=== PATIENT | male | born 1945 | race Caucasian/White ===

== ENCOUNTER 2019-10-15 22:45 | Inpatient (IN) | payer MEDICARE, BC ==
[~2019-10-15] VITALS: Ht 188 cm; Wt 103.5 kg
--- NOTE | 2019-10-15 23:12 | NUR ---
assessment made. seen by SABRA. monse to monitor. patient alert and oriented. denies CP / SOB at this time. AMARI Blair at bedside for pacemaker interrogation.
[2019-10-15] MEDS ORDERED: OMEP-110 PO (23:15)
[2019-10-15] MEDS ORDERED: ACET650S21 PO (23:15)
--- NOTE | 2019-10-15 23:16 | NUR ---
Dr. Palafox on phone with dynamometer repairer.
--- NOTE | 2019-10-15 23:24 | NUR ---
PACEMAKER INTERROGATION IN PROGRESS
--- NOTE | 2019-10-16 | NUR ---
ERP at bedside talking to patient for plan of care.
--- NOTE | 2019-10-16 00:36 | NUR ---
[employer] tech at bedside. patient had a ~ 8 secs pause.
--- NOTE | 2019-10-16 02:16 | NUR ---
patient awaiting admission orders from hospitalist.
[2019-10-16] MEDS ORDERED: ACETAMINOPHEN 325 MG TABLET PO PRN ×2 (03:00→15:30)
[2019-10-16] MEDS ORDERED: DOCUSATE 100 MG CAPSULE PO PRN (03:00)
[2019-10-16] MEDS ORDERED: ONDANSETRON 2MG/ML, 2ML IVPush PRN (03:00)
[2019-10-16] MEDS ORDERED: POLYETHYLENE GLYCOL 17 GM PACKET PO PRN (03:00)
[2019-10-16] MEDS ORDERED: OXYcodone IR 5MG TABLET PO PRN (03:00)
[2019-10-16] MEDS ORDERED: morphine SULFATE 10 MG/ML, 1ML IVPush PRN (03:00)
[2019-10-16] MEDS ORDERED: BISACODYL 10 MG SUPP PR PRN (03:00)
[2019-10-16] MEDS ORDERED: PROMETHAZINE 25 MG/ML, 1ML IM PRN (03:00)
[2019-10-16] MEDS ORDERED: hydrALAzine 20 MG/ML, 1ML IVPush PRN (03:00)
[2019-10-16] MEDS ORDERED: ONDANSETRON ODT 4 MG PO PRN (03:00)
[2019-10-16 03:06] LABS: BASOPHILS # (AUTO) 0.03 x10^3/uL (0-0.1); BASOPHILS % (AUTO) 0 % (0-1); EOSINOPHILS # (AUTO) 0.37 x10^3/uL (0-0.4); EOSINOPHILS % (AUTO) 5 % (1-7); LYMPHOCYTES # (AUTO) 1.86 x10^3/uL (1-3.4); LYMPHOCYTES % (AUTO) 24 % (22-44); MD NO; MEAN CORPUSCULAR HEMOGLOBIN 32.1 pg (27.5-34.5); MEAN CORPUSCULAR HGB CONC 32.8 g/dL (33.2-36.2); MEAN CORPUSCULAR VOLUME 97.8 fL (81-97); MEAN PLATELET VOLUME 7.4 fL (7.4-10.4); MONOCYTES # (AUTO) 0.59 x10^3/uL (0.2-0.8); MONOCYTES % (AUTO) 8 % (2-9); NEUTROPHILS # (AUTO) 5.08 x10^3/uL (1.8-6.8); NEUTROPHILS % (AUTO) 64 % (42-75); PLATELET COUNT 240 x10^3/uL (130-400); RED BLOOD COUNT 4.76 x10^6/uL (4.38-5.82); RED CELL DISTRIBUTION WIDTH 13.8 % (9.4-14.8)
[2019-10-16] MEDS ORDERED: LIDOCAINE 1%, 20ML ONE ×2 (03:18→13:33)
[2019-10-16] MEDS ORDERED: FENTANYL PF 250 MCG/5ML ONE ×2 (03:18→13:33)
[2019-10-16] MEDS ORDERED: MIDAZOLAM 1 MG/ML, 5ML ONE ×2 (03:18→13:33)
[2019-10-16] MEDS ORDERED: VANCOMYCIN 500 MG ONE ×2 (03:18→13:33)
[2019-10-16] MEDS ORDERED: VANCOMYCIN PMX 1GM/200ML 0 ML ONE (03:18)
[2019-10-16 03:20] LABS: ALANINE AMINOTRANSFERASE 31 U/L (12-78); ALBUMIN 3.4 g/dL (3.4-5.0); ANION GAP 6 mmol/L (5-15); CALCIUM 8.3 mg/dL (8.5-10.1); CHLORIDE 112 mmol/L (98-107); CHOLESTEROL, TOTAL 152 mg/dL (140-239); CREATININE 1.26 mg/dL (0.7-1.3); TRIGLYCERIDES 49 mg/dL (50-200); VLDL CHOLESTEROL 10 mg/dL (0-25)
[2019-10-16 03:22] LABS: ALKALINE PHOSPHATASE 70 U/L (45-117); BILIRUBIN,TOTAL 0.5 mg/dL (0.2-1.0); CHOL/HDL RATIO 3.4; HDL CHOL % 30 % (26-37); HDL CHOLESTEROL (DIRECT) 45 mg/dL (40-60); LDL CHOLESTEROL,CALCULATED 97 mg/dL (54-169); LDL/HDL RATIO 2.2 (0.5-3.0); TOTAL PROTEIN 6.9 g/dL (6.4-8.2)
--- NOTE | 2019-10-16 03:25 | NUR ---
Territory Service Representative at bedside talking to patient and patient's .
--- NOTE | 2019-10-16 03:35 | NUR ---
patient to operations label clerk.
[2019-10-16 03:39] LABS: HEMOGLOBIN A1C 5.8 % (4.2-6.3)
[2019-10-16 03:41] LABS: FREE T4 (FREE THYROXINE) 0.97 ng/dL (0.76-1.46)
[2019-10-16] MEDS: SODIUM CHLORIDE 0.9% 1,000 ML IV SCH ×4 (05:03→13:06)
[2019-10-16] MEDS ORDERED: VANCOMYCIN PMX 1GM/200ML 200 ML IVPB SCH (09:30)
[2019-10-16] MEDS: OMEPRAZOLE 20 MG CAPSULE.DR PO SCH (09:33)
[2019-10-16] MEDS ORDERED: VANCOMYCIN PMX 1GM/200ML 200 ML ONE (13:33)
[2019-10-16] MEDS ORDERED: methylPREDNISolone SOD SUCC 125 MG/2 ML ONE (14:06)
[2019-10-16] MEDS ORDERED: DIPHENHYDRAMINE 50 MG/ML, 1ML ONE (14:06)
[2019-10-16] MEDS ORDERED: HOLD MEDICATION MC PRN (15:30)
[2019-10-16 19:43] VITALS: BP 120/72
[2019-10-16] MEDS ORDERED: VANCOMYCIN PMX 1GM/200ML 200 ML IVPB ONE (22:00)
[2019-10-17 05:37] LABS: MEAN CORPUSCULAR HEMOGLOBIN 32.2 pg (27.5-34.5); MEAN CORPUSCULAR HGB CONC 32.9 g/dL (33.2-36.2); MEAN CORPUSCULAR VOLUME 97.8 fL (81-97); PLATELET COUNT 216 x10^3/uL (130-400); RED BLOOD COUNT 4.57 x10^6/uL (4.38-5.82); RED CELL DISTRIBUTION WIDTH 13.4 % (9.4-14.8)
[2019-10-17 05:43] LABS: CHLORIDE 113 mmol/L (98-107)
[2019-10-17 05:48] LABS: ALANINE AMINOTRANSFERASE 26 U/L (12-78); ALKALINE PHOSPHATASE 56 U/L (45-117); ANION GAP 4 mmol/L (5-15); BILIRUBIN,TOTAL 0.5 mg/dL (0.2-1.0); CALCIUM 8.6 mg/dL (8.5-10.1); TOTAL PROTEIN 6.2 g/dL (6.4-8.2)
[2019-10-17 05:55] LABS: MD YES
[2019-10-17 05:56] LABS: <PLATELET ESTIMATE> ADEQUATE; <PLT MORPHOLOGY> NORMAL PLT MORPH; <RBC MORPHOLOGY> NORMAL; BAND#(MANUAL) 0.19 x10^3/uL; BANDS%(MANUAL) 1 % (0-7); LYMPH#(MANUAL) 0.94 x10^3/uL (1-3.4); LYMPHS% (MANUAL) 5 % (22-44); MONOS#(MANUAL) 0.56 x10^3/uL (0.3-2.7); MONOS% (MANUAL) 3 % (2-9); SEG#(MANUAL) 17.02 x10^3/uL (1.8-6.8); SEGS% (MANUAL) 91 % (42-75)
[2019-10-17] MEDS: SODIUM CHLORIDE FLUSH 10ML SYR IVF SCH ×2 (06:33→10:30)
[2019-10-17 07:23] VITALS: BP_SYST 114; BP_SYST 126; BP_DIAS 65; BP_DIAS 70
[2019-10-17] MEDS: OMEPRAZOLE 20 MG CAPSULE.DR PO SCH (10:32)
== END 2019-10-17 13:50 | disposition home or self-care (01) | DRG 261 ==
LOC: ED 10-16 00:57 → EDIP 10-16 01:13 → CCU 10-16 04:15 → 5SO 10-16 14:20 → DCLOUNGE 10-17 13:33
PROVIDERS: ADMIT Internal Medicine; ATTEND Internal Medicine
PROC: 0JWT0PZ Revision of Cardiac Rhythm Related Device in Trunk Subcutaneous Tissue and Fascia, Open Approach (ICD-10-PCS; principal; 2019-10-16)
PROC: 4B02XSZ Measurement of Cardiac Pacemaker, External Approach (ICD-10-PCS; 2019-10-16)
PROC: 02HK3JZ Insertion of Pacemaker Lead into Right Ventricle, Percutaneous Approach (ICD-10-PCS; 2019-10-16)
DX: T82.110A Breakdown (mechanical) of cardiac electrode, initial encounter (principal); I44.2 Atrioventricular block, complete; I50.22 Chronic systolic (congestive) heart failure; Z88.0 Allergy status to penicillin; Z88.8 Allergy status to other drugs, medicaments and biological substances; Z88.3 Allergy status to other anti-infective agents; Z91.040 Latex allergy status; D72.829 Elevated white blood cell count, unspecified; E78.5 Hyperlipidemia, unspecified; I11.0 Hypertensive heart disease with heart failure; K21.9 Gastro-esophageal reflux disease without esophagitis; Y71.2 Prosthetic and other implants, materials and accessory cardiovascular devices associated with adverse incidents; Y92.89 Other specified places as the place of occurrence of the external cause; Z85.46 Personal history of malignant neoplasm of prostate; Z87.891 Personal history of nicotine dependence; Z90.79 Acquired absence of other genital organ(s); Z98.1 Arthrodesis status
CPT/HCPCS: 33210; 33216; 36415; 71045; 80053; 80061; 83036; 83735; 84439; 84443; 85025; 87081; 93005; 93306; 99156; 99157; 99292; C1779; C1892; C1894; G0378; J2250; J3010; J3370; J1200; J2930; J7030; Q9967